=== PATIENT | female | born 1980 | race Two or more races ===

== ENCOUNTER 2021-12-20 11:03 | Emergency (ER) | payer OTHER ==
[~2021-12-20] VITALS: Ht 162.6 cm; Wt 108.0 kg
[2021-12-20] MEDS ORDERED: VITAMIN D31250 MCG PO (11:51)
[2021-12-20] MEDS ORDERED: METHOTREXATE2.5 MG PO (11:51)
[2021-12-20] MEDS ORDERED: HYDROXYCHLOROQ200 MG PO (11:52)
[2021-12-20] MEDS ORDERED: FOLIC ACID1 MG PO (11:52)
[2021-12-20] MEDS ORDERED: IRBESARTAN-HCT1 EAC1 PO (11:53)
[2021-12-20] MEDS ORDERED: SYNTHROID200 MCG PO (11:53)
== END 2021-12-20 15:15 | disposition home or self-care (01) ==
LOC: ER 11:03
DX: B34.9 Viral infection, unspecified (principal); Z20.822 Contact with and (suspected) exposure to COVID-19; I10 Essential (primary) hypertension; Z88.6 Allergy status to analgesic agent

== ENCOUNTER 2022-08-18 09:50 | Emergency (ER) | payer OTHER ==
[~2022-08-18] VITALS: Ht 162.6 cm; Wt 110.7 kg
[~2022-08-18 09:50] MED LIST: FOLIC ACID1 MG PO; HYDROXYCHLOROQ200 MG PO; IRBESARTAN-HCT1 EAC1 PO; METHOTREXATE2.5 MG PO; SYNTHROID200 MCG PO; VITAMIN D31250 MCG PO
== END 2022-08-18 14:15 | disposition home or self-care (01) ==
LOC: ER 09:50
DX: J40 Bronchitis, not specified as acute or chronic (principal); B34.9 Viral infection, unspecified; Z20.822 Contact with and (suspected) exposure to COVID-19